=== PATIENT | female | born 1965 | race African-American/Black ===

== ENCOUNTER 2016-09-20 15:25 | Emergency (ER) | payer OTHER ==
[~2016-09-20] VITALS: Ht 162.6 cm; Wt 62.7 kg
[~2016-09-20 15:25] MED LIST: AZITHROMYCIN250 MG PO; FLEXERIL10 MG PO; IBUPROFEN600 MG PO; NOHOMEMEDS; PRILOSEC40 MG PO; ROBITUSSIN AC,T10 ML PO; ULTRAM50 MG PO; VENTOLIN HFA18 GM IH; VICODIN 5-3001 EACH PO; ZITHROMAX Z-PA250 MG PO; ZOFRAN4 MG PO
[2016-09-20 17:10] LABS: INFLUENZA A VIRAL ANTIGEN NEGATIVE; INFLUENZA B VIRAL ANTIGEN NEGATIVE
[2016-09-20] MEDS ORDERED: HYCODAN SYRUP480 ML PO (17:53)
[2016-09-20] MEDS ORDERED: VENTOLIN HFA18 GM IH (17:53)
[2016-09-20] MEDS ORDERED: PREDNISONE20 MG PO (17:53)
[2016-09-20 18:08] VITALS: BP 130/68
== END 2016-09-20 18:10 | disposition home or self-care (01) ==
LOC: EME 15:25
PROVIDERS: Physician Assistant
DX: J40 Bronchitis, not specified as acute or chronic (principal); J45.909 Unspecified asthma, uncomplicated
CPT/HCPCS: 71020; 87502; 94640; 99281; 99284; J7512

== ENCOUNTER 2016-12-10 17:04 | Emergency (ER) | payer OTHER ==
[~2016-12-10] VITALS: Ht 162.6 cm; Wt 71.0 kg
[~2016-12-10 17:04] MED LIST changes: +HYCODAN SYRUP480 ML PO; +PREDNISONE20 MG PO
[2016-12-10 17:56] LABS: CHLORIDE 110 mEq/L (99-109); POTASSIUM 3.2 mEq/L (3.7-5.4); SODIUM 142 mEq/L (136-147)
[2016-12-10 18:04] LABS: ALKALINE PHOSPHATASE 119 IU/L (3-129); ANION GAP 8 MEQ/L (2-14); GFR ESTIMATE (CALCULATED) > 59 mL/min/; GLUCOSE 123 mg/dL (70-99); TOTAL BILIRUBIN 0.2 mg/dL (0.0-1.0); UREA NITROGEN (BUN) 8 mg/dL (9-23)
[2016-12-10 18:05] LABS: LIPASE 20 U/L (1.0-51.0)
[2016-12-10 18:19] LABS: QUANTITATIVE HCG < 4.0 MIU/ML
[2016-12-10 18:40] LABS: HEMATOCRIT 27.8 % (36.0-46.0); MCHC 26.6 G/DL (30.0-36.0); MCV 63.8 FL (83-99); MEAN PLAT.VOLUME 9.6 uM^3 (9.5-12.4); PLATELET COUNT 253 K/uL (156-360); RBC DIS.WIDTH-SD 49.1 % (39-53); RED BLOOD COUNT 4.36 M/uL (3.80-5.20)
[2016-12-10] MEDS ORDERED: ULTRAM50 MG PO (20:10)
[2016-12-10 20:31] LABS: ADD MIUA? YES; BILIRUBIN NEGATIVE; BLOOD NEGATIVE; COLOR YELLOW ((YELLOW)); GLUCOSE (STRIP) NEGATIVE; KETONES NEGATIVE; LEUKOCYTES TRACE; NITRITE NEGATIVE; PROTEIN (STRIP) NEGATIVE; UROBILINOGEN 0.2 MG/DL (0.2-1.0)
[2016-12-10 20:35] VITALS: BP 112/67
[2016-12-10 20:49] LABS: BACTERIA RARE /HPF; EPITHELIAL CELLS 2+ /HPF; MUCUS 1+ /LPF; RED BLOOD CELLS 0-5 /HPF (0-5); WHITE BLOOD CELLS 0-5 /HPF (0-5)
[2016-12-10 21:54] LABS: SPECIFIC GRAVITY 1.074 (1.000-1.030)
== END 2016-12-10 20:35 | disposition home or self-care (01) ==
LOC: EME 17:04
PROVIDERS: Nurse Practitioner Family
DX: M25.562 Pain in left knee (principal); S30.1XXA Contusion of abdominal wall, initial encounter; W10.9XXA Fall (on) (from) unspecified stairs and steps, initial encounter; Z88.0 Allergy status to penicillin; Z88.6 Allergy status to analgesic agent
CPT/HCPCS: 73564; 74177; 80053; 81003; 83690; 84702; 85027; 99281; 99284; J7030

== ENCOUNTER 2017-04-09 21:21 | Emergency (ER) | payer OTHER ==
[~2017-04-09] VITALS: Ht 165.1 cm; Wt 73.4 kg
[2017-04-09 21:50] LABS: MCH 20.4 PG (29.0-34.0); MCHC 28.9 G/DL (30.0-36.0); MCV 70.4 FL (83-99); PLATELET COUNT 223 K/uL (156-360); RBC DIS.WIDTH-SD 73.6 % (39-53); WHITE BLOOD COUNT 6.1 K/uL (4.1-10.2)
[2017-04-09 21:54] LABS: CHLORIDE 108 mEq/L (99-109); POTASSIUM 3.7 mEq/L (3.7-5.4); SODIUM 136 mEq/L (136-147)
[2017-04-09 21:56] LABS: GLUCOSE 100 mg/dL (70-99)
[2017-04-09 21:58] LABS: ANION GAP 7 MEQ/L (2-14); TOTAL BILIRUBIN 0.1 mg/dL (0.0-1.0)
[2017-04-09 22:00] LABS: ALKALINE PHOSPHATASE 154 IU/L (3-129); GFR ESTIMATE (CALCULATED) > 59 mL/min/
[2017-04-09 22:01] LABS: UREA NITROGEN (BUN) 12 mg/dL (9-23)
[2017-04-09 22:03] LABS: LIPASE 35 U/L (1.0-51.0)
[2017-04-09] MEDS ORDERED: OMEPRAZOLE40 M1 PO (22:35)
[2017-04-09] MEDS ORDERED: CARAFATE1 GM PO (22:35)
[2017-04-09 22:51] VITALS: BP 145/85
== END 2017-04-09 22:52 | disposition home or self-care (01) ==
LOC: EXP 21:21 → EME 21:21 → EXP 22:52
PROVIDERS: Physician Assistant
DX: K25.9 Gastric ulcer, unspecified as acute or chronic, without hemorrhage or perforation (principal); Z98.890 Other specified postprocedural states; Z90.49 Acquired absence of other specified parts of digestive tract; Z86.718 Personal history of other venous thrombosis and embolism; Z87.891 Personal history of nicotine dependence
CPT/HCPCS: 80053; 83690; 85027; 99281; 99283

== ENCOUNTER 2017-08-04 16:20 | Emergency (ER) | payer OTHER ==
[~2017-08-04] VITALS: Ht 165.1 cm; Wt 71.9 kg
[~2017-08-04 16:20] MED LIST changes: +CARAFATE1 GM PO; +OMEPRAZOLE40 M1 PO
[2017-08-04 17:37] LABS: BASOPHIL (%) 0.3 % (0-1); EOSINOPHIL (%) 1.2 % (0-5); EOSINOPHIL COUNT 0.1 K/uL (0-0.3); HEMATOCRIT 43.3 % (36.0-46.0); IMMATURE GRANULOCYTE (%) 0.3 % (0.0-0.7); LYMPHOCYTE (%) 36.7 % (15-42); LYMPHOCYTE COUNT 2.6 K/uL (1.0-2.8); MCH 26.7 PG (29.0-34.0); MCHC 32.3 G/DL (30.0-36.0); MCV 82.6 FL (83-99); MONOCYTE (%) 8.6 % (3-12); MONOCYTE COUNT 0.6 K/uL (0-0.8); NEUTROPHIL (%) 52.9 % (45-76); NEUTROPHIL COUNT 3.7 K/uL (1.8-6.4); PLATELET COUNT 233 K/uL (156-360); RBC DIS.WIDTH-CV 18.9 % (11.8-14.6); RBC DIS.WIDTH-SD 56.8 % (39-53); RED BLOOD COUNT 5.24 M/uL (3.80-5.20); WHITE BLOOD COUNT 6.9 K/uL (4.1-10.2)
[2017-08-04 17:49] LABS: CHLORIDE 107 mEq/L (99-109); POTASSIUM 4.1 mEq/L (3.7-5.4); SODIUM 140 mEq/L (136-147)
[2017-08-04 17:51] LABS: GLUCOSE 110 mg/dL (70-99)
[2017-08-04 17:55] LABS: CREATININE 0.7 mg/dL (0.6-1.3); GFR ESTIMATE (CALCULATED) > 59 mL/min/
[2017-08-04 17:56] LABS: UREA NITROGEN (BUN) 5 mg/dL (9-23)
[2017-08-04] MEDS ORDERED: CLINDAMYCIN HC300 MG PO (21:54)
[2017-08-04] MEDS ORDERED: ULTRACET1 TABLET PO (21:54)
[2017-08-04] MEDS ORDERED: CIPRO500 MG PO (21:54)
[2017-08-04] MEDS ORDERED: CLEOCIN150 MG PO (21:54)
[2017-08-05 00:31] VITALS: BP 114/75
== END 2017-08-05 00:32 | disposition home or self-care (01) ==
LOC: EXP 16:20 → EME 16:20 → EXP 08-05 00:32
PROVIDERS: Physician Assistant
DX: K11.20 Sialoadenitis, unspecified (principal); Z87.891 Personal history of nicotine dependence; Z86.718 Personal history of other venous thrombosis and embolism; Z90.49 Acquired absence of other specified parts of digestive tract; Z87.19 Personal history of other diseases of the digestive system; Z98.51 Tubal ligation status; Z88.6 Allergy status to analgesic agent; Z88.0 Allergy status to penicillin
CPT/HCPCS: 70491; 80048; 83605; 85025; 86735 90; 87040; 99281; 99284; J1885; J3370; J7030